=== PATIENT | male | born 1995 | race Caucasian/White ===

== ENCOUNTER 2018-06-12 00:35 | Emergency (ER) | payer OTHER ==
[~2018-06-12] VITALS: Ht 188 cm; Wt 95.3 kg
[2018-06-12 00:39] VITALS: BP 130/90
--- NOTE | 2018-06-12 00:39 | NUR ---
TO BED # 11 AMBULATORY, REPORT GIVEN TO AIME GARCIA.
--- NOTE | 2018-06-12 00:45 | NUR ---
PATIENT PRESENTS TO ED WITH C/O RT ARM PAIN,ON AND NUMBNESS STARTED AT 2330 HOURS PT DENIES N/V/D; SKIN IS PINK/WARM/DRY; AAOX4 WITH EVEN AND STEADY GAIT; LUNGS CLEAR BL; HR EVEN AND REGULAR; PATIENT STATES PAIN OF 2/10 AT THIS TIME; VSS; PATIENT POSITIONED FOR COMFORT; HOB ELEVATED; BEDRAILS UP X2; BED DOWN. ER MD MADE AWARE OF PT STATUS.
--- NOTE | 2018-06-12 01:37 | NUR ---
PATIENT TAKEN TO CT VIA WHEELCHAIR WITH TECH.
--- NOTE | 2018-06-12 01:50 | NUR ---
PATIENT RETURN FROM CT.
--- NOTE | 2018-06-12 02:12 | NUR ---
PT RESTING IN BED COMFORTABLY. NO S/S OF DISTRESS NOTED
--- NOTE | 2018-06-12 03:12 | NUR ---
PT AMBULATED TO BATHROOM WITH STEADY GAIT. NAD NOTED
[2018-06-12 03:20] VITALS: BP 125/86
--- NOTE | 2018-06-12 03:21 | NUR ---
Patient discharged with v/s stable. Written and verbal after care instructions given and explained. Patient verbalized understanding. Ambulatory with steady gait. All questions addressed prior to discharge. Advised to follow up with PMD.
== END 2018-06-12 03:20 | disposition home or self-care (01) ==
LOC: MED 00:35
DX: R20.0 Anesthesia of skin (principal); R20.2 Paresthesia of skin
CPT/HCPCS: 72128; 99284

== ENCOUNTER 2020-05-07 20:48 | Emergency (ER) | payer OTHER ==
[~2020-05-07] VITALS: Ht 188 cm; Wt 103.9 kg
[2020-05-07 21:04] VITALS: BP 131/76
--- NOTE | 2020-05-07 21:07 | NUR ---
PT AMBULATED TO BED #9.
--- NOTE | 2020-05-07 22:05 | NUR ---
Dr. Malik examining patient.
[2020-05-07] MEDS ORDERED: KETOROLAC 30 MG/ML VIAL IM ONE (22:15)
--- NOTE | 2020-05-07 22:20 | NUR ---
LAB AT BEDSIDE
[2020-05-07 22:28] LABS: BASOPHILS % (AUTO) 0.2 % (0.0-2.0); EOSINOPHILS % (AUTO) 0.2 % (0.0-4.0); HEMATOCRIT 45.3 % (36-52); LYMPHOCYTES # (AUTO) 2.9 K/uL (2.0-11.5); LYMPHOCYTES % (AUTO) 20.6 % (20.5-51.1); MEAN CORPUSCULAR HEMOGLOBIN 29 pg (27-31); MEAN CORPUSCULAR HGB CONC 33 g/dL (33-37); MEAN CORPUSCULAR VOLUME 86.8 fL (80-94); MONOCYTES # (AUTO) 1.8 K/uL (0.8-1.0); NEUTROPHILS # (AUTO) 9.2 K/uL (1.8-7.7); PLATELET COUNT (AUTO) 249 K/uL (140-450); RED BLOOD CELL COUNT(AUTO) 5.22 MIL/uL (4.20-6.10); RED CELL DISTRIBUTION WIDTH 14.2 % (11.6-13.7); WHITE BLOOD COUNT (AUTO) 13.9 K/uL (4.8-10.8)
--- NOTE | 2020-05-07 22:31 | NUR ---
PT STATES AFTER HE ATE SOME TACOS YESTERDAY HE STARTED HAVING ABD PAIN AND EVENTUALLY VOMITED X 2. SINCE THEN HE HAS LOWER MID TO RIGHT SIDED ABD PAIN, TENDER UPON PALPATION. PT STATES LAST BM WAS YESTERDAY, DENIES DIARRHEA OR CONSTIPATION. AFEBRILE, NO SOB, NO COUGH. BED IN LOWEST POSITION AND SIDERAIL UP X 1 NKA NO HX
--- NOTE | 2020-05-07 22:56 | NUR ---
AFTER MED, PAIN IS 2/10
== END 2020-05-07 23:10 | disposition home or self-care (01) ==
LOC: MED 20:48
DX: R10.33 Periumbilical pain (principal); R11.2 Nausea with vomiting, unspecified
CPT/HCPCS: 36415; 85025; 96372; 99283; J1885

== ENCOUNTER 2022-08-24 09:07 | Emergency (ER) | payer OTHER ==
[~2022-08-24] VITALS: Ht 188 cm; Wt 108.9 kg
[2022-08-24 09:40] VITALS: BP 150/94
--- NOTE | 2022-08-24 09:52 | NUR ---
kanika and influenza swabbed and sent to lab
[2022-08-24 13:15] VITALS: BP 129/77
--- NOTE | 2022-08-24 13:15 | NUR ---
Patient discharged with v/s stable. Written and verbal after care instructions ABOUT UPPER RESPIRATORY INFECTION given and explained. Patient verbalized understanding. Ambulatory with steady gait. All questions addressed prior to discharge. Advised to follow up with PMD.
== END 2022-08-24 13:15 | disposition home or self-care (01) ==
LOC: MED 09:07
DX: J06.9 Acute upper respiratory infection, unspecified (principal); Z20.822 Contact with and (suspected) exposure to COVID-19
CPT/HCPCS: 99283

== ENCOUNTER 2023-02-15 13:19 | Emergency (ER) | payer OTHER ==
[~2023-02-15] VITALS: Ht 177.8 cm; Wt 108.9 kg
[2023-02-15 13:40] VITALS: BP 138/82
--- NOTE | 2023-02-15 14:04 | NUR ---
AMB. TO BED 4, NO ACUTE DISTRESS
[2023-02-15 15:12] LABS: BASOPHILS % (AUTO) 0.2 % (0.0-2.0); EOSINOPHILS # (AUTO) 0.1 K/uL (0-0.4); EOSINOPHILS % (AUTO) 1.1 % (0.0-4.0); HEMATOCRIT 44.5 % (36-52); LYMPHOCYTES # (AUTO) 1.9 K/uL (2.0-11.5); MEAN CORPUSCULAR HEMOGLOBIN 29 pg (27-31); MEAN CORPUSCULAR HGB CONC 34 g/dL (33-37); MEAN CORPUSCULAR VOLUME 85.1 fL (80-94); MONOCYTES # (AUTO) 0.5 K/uL (0.8-1.0); MONOCYTES % (AUTO) 5.5 % (1.7-9.3); NEUTROPHILS % (AUTO) 71.2 % (42.2-75.2); PLATELET COUNT (AUTO) 252 K/uL (140-450); RED BLOOD CELL COUNT(AUTO) 5.24 MIL/uL (4.20-6.10); RED CELL DISTRIBUTION WIDTH 14.1 % (11.6-13.7); WHITE BLOOD COUNT (AUTO) 8.5 K/uL (4.8-10.8)
[2023-02-15 15:47] LABS: ALBUMIN 4.3 g/dL (3.4-5.0); ANION GAP 9.4 (8-16); ASPARTATE AMINOTRANSFERASE 23 U/L (15-37); CARBON DIOXIDE 29.6 mmol/L (21-32); CHLORIDE 103 mmol/L (98-107); CREATININE 0.9 mg/dL (0.6-1.3); GFR ARICAN-AMERICAN 131 mL/min (>90); GLUCOSE 103 mg/dL (74-106); LIPASE 74 U/L (73-393); SODIUM SERUM 138 mmol/L (136-145); TOTAL BILIRUBIN 0.5 mg/dL (0.0-1.0); UREA NITROGEN, BLOOD 12 mg/dL (7-18)
[2023-02-15 16:35] VITALS: BP 123/67
== END 2023-02-15 16:35 | disposition home or self-care (01) ==
LOC: MED 13:19
DX: R07.9 Chest pain, unspecified (principal); F32.9 Major depressive disorder, single episode, unspecified; F41.9 Anxiety disorder, unspecified
CPT/HCPCS: 36415; 71045; 80053; 83690; 84484; 85025; 93005; 99285; Q0092

== ENCOUNTER 2023-10-13 14:39 | Emergency (ER) | payer OTHER ==
[~2023-10-13] VITALS: Ht 177.8 cm; Wt 136.1 kg
[2023-10-13 15:01] VITALS: BP 129/79; PULSE 102; RESP 22; TEMP 97; O2SAT 98
[2023-10-13 16:18] LABS: BASOPHILS % (AUTO) 0.4 % (0.0-2.0); EOSINOPHILS # (AUTO) 0.1 K/uL (0-0.4); EOSINOPHILS % (AUTO) 0.8 % (0.0-4.0); HEMATOCRIT 45.2 % (36-52); HEMOGLOBIN 15.5 g/dL (12.0-18.0); LYMPHOCYTES # (AUTO) 2.9 K/uL (2.0-11.5); LYMPHOCYTES % (AUTO) 27.2 % (20.5-51.1); MEAN CORPUSCULAR HEMOGLOBIN 29 pg (27-31); MEAN CORPUSCULAR HGB CONC 34 g/dL (33-37); MEAN CORPUSCULAR VOLUME 85.2 fL (80-94); MONOCYTES # (AUTO) 0.8 K/uL (0.8-1.0); MONOCYTES % (AUTO) 7.8 % (1.7-9.3); NEUTROPHILS # (AUTO) 6.8 K/uL (1.8-7.7); NEUTROPHILS % (AUTO) 63.8 % (42.2-75.2); PLATELET COUNT (AUTO) 273 K/uL (140-450); RED CELL DISTRIBUTION WIDTH 14.4 % (11.6-13.7); WHITE BLOOD COUNT (AUTO) 10.7 K/uL (4.8-10.8)
[2023-10-13] MEDS ORDERED: OMEP-303 PO (16:38)
[2023-10-13 16:41] LABS: ANION GAP 11.9 (8-16); CALCIUM 8.8 mg/dL (8.5-10.1); CARBON DIOXIDE 28.6 mmol/L (21-32); POTASSIUM 4.5 mmol/L (3.5-5.1); TOTAL BILIRUBIN 0.3 mg/dL (0.0-1.0); TOTAL PROTEIN, SERUM 8.8 g/dL (6.4-8.2)
[2023-10-13 16:42] LABS: APPEARANCE,URINE CLEAR (CLEAR); BILIRUBIN,URINE NEGATIVE (NEGATIVE); BLOOD, URINE NEGATIVE (NEGATIVE); COLOR,URINE YELLOW (YELLOW); LEUKOCYTE ESTERASE ,URINE NEGATIVE (NEGATIVE); NITRITE, URINE NEGATIVE (NEGATIVE); PH,URINE 6.5 (5.0-9.0); PROTEIN,URINE NEGATIVE (NEGATIVE); UGLUCOSE NEGATIVE (NEGATIVE); UROBILINOGEN,URINE 0.2 EU/dL (0.2 - 1)
[2023-10-13 17:03] VITALS: BP 131/71; PULSE 84; RESP 16; TEMP 97; O2SAT 97
== END 2023-10-13 17:01 | disposition home or self-care (01) ==
LOC: MED 14:39
DX: R10.13 Epigastric pain (principal); R74.01 Elevation of levels of liver transaminase levels; R73.01 Impaired fasting glucose; Z79.899 Other long term (current) drug therapy
CPT/HCPCS: 36415; 80053; 81003; 82150; 83690; 85025; 99283

== ENCOUNTER 2024-04-26 13:04 | Emergency (ER) | payer OTHER ==
[~2024-04-26] VITALS: Ht 188 cm; Wt 102.7 kg
[~2024-04-26 13:04] MED LIST: OMEP-303 PO
[2024-04-26 13:16] VITALS: BP 127/82; PULSE 66; RESP 14; TEMP 97.5; O2SAT 100
[2024-04-26] MEDS ORDERED: CYCL-711 PO (14:13)
[2024-04-26] MEDS ORDERED: IBUP-2213 PO (14:14)
== END 2024-04-26 14:24 | disposition home or self-care (01) ==
LOC: MED 13:04
DX: M54.50 Low back pain, unspecified (principal)
CPT/HCPCS: 99283